=== PATIENT | female | born 1975 | race Caucasian/White ===

== ENCOUNTER → 2025-07-26 | Outpatient (CLI) | payer BC, SELFPAY ==
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
== END | disposition home or self-care (01) ==
LOC: CDIM 14:44
PROVIDERS: PCP Family Medicine; Referring Provider Family Medicine; Visit Provider Family Medicine
DX: S22.41XA Multiple fractures of ribs, right side, initial encounter for closed fracture (principal); V89.2XXA Person injured in unspecified motor-vehicle accident, traffic, initial encounter
CPT/HCPCS: 71046

== ENCOUNTER 2025-07-27 07:14 | Emergency (ER) | payer BC, SELFPAY ==
--- NOTE | 2025-07-27 07:21 | EKG_ITS ---
[facility] Test Date: 2025-07-27 Pat Name: PAWAN MACKEY Department: Room: - Gender: Female Rigger Up: : 1975 Requested By: Duc Fallon Order Number: [id number] Reading MD: Duc Fallon Measurements Intervals [place] Rate: 65 P: 50 OR: 192 QRS: 18 QRSD: 70 T: 29 QT: 351 QTc: 366 Interpretive Statements SINUS RHYTHM MINIMAL ST DEPRESSION [0.025+ mV ST DEPRESSION] No previous ECG available for comparison /store/S0/[id number].pdf
[2025-07-27 07:30] VITALS: BP 107/70; PULSE 61; RESP 16; TEMP 36.5; O2SAT 99; BMI 26.6
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
[2025-07-27 08:04] LABS: Collection Type, Urine Clean Catch; Squamous Epithelial Cell,Urine 0 /hpf (0-5)
[2025-07-27 08:07] LABS: Bilirubin,Urine Negative (Negative); Blood,Urine Negative (Negative); Clarity,Urine Clear (Clear/Hazy); Color,Urine Lt-Yellow (Lt Yel-Yel); Culture Indicated,Urine Not Indicated; Glucose, Urine Negative (Negative); Ketones,Urine Negative (Negative); Leukocyte Esterase,Urine Negative (Negative); Nitrite,Urine Negative (Negative); PH,Urine 6.5 (5.0-7.0); Protein,Urine Negative (Neg - Trace); RBC,Urine 1 /hpf (0-3); Specific Gravity,Urine 1.013 (1.001-1.035); Urobilinogen,Urine Negative mg/dL (0.0-1.0); WBC,Urine < 1 /hpf (0-5)
[2025-07-27 08:26] LABS: Basophils # (Auto) 0.1 Thou/mm3 (0.0-0.2); Basophils % (Auto) 1 % (0-2.5); Eosinophils # (Auto) 0.3 Thou/mm3 (0.0-0.5); Eosinophils % (Auto) 4 % (0-10); Hematocrit 37.9 % (36.0-46.0); Hemoglobin 12.6 g/dL (12.0-16.0); Immature Granulocytes Auto 0.02 Thou/mm3 (0.00-0.00); Lymphocytes # (Auto) 1.3 Thou/mm3 (1.0-4.8); Lymphocytes % (Auto) 20 % (10-50); Mean Corpuscular HGB Conc 33.2 g/dl (31.0-37.0); Mean Corpuscular Hemoglobin 30.1 pg (25.0-35.0); Mean Corpuscular Volume 91 fL (80-100); Monocytes # (Auto) 0.4 Thou/mm3 (0.0-0.8); Monocytes % (Auto) 7 % (0-12); Neutrophils # (Auto) 4.5 Thou/mm3 (1.8-7.7); Neutrophils % (Auto) 68 % (37-80); Nucleated Red Blood Cell # 0.00 Thou/mm3 (0.00-0.00); Nucleated Red Blood Cell % 0 /100 WBC (0); Platelet Count 239 Thou/mm3 (140-440); RDW Standard Deviation 42.9 fL (36.4-46.3); Red Blood Count 4.19 Miln/mm3 (4.00-5.20); White Blood Count 6.5 Thou/mm3 (3.6-11.0)
[2025-07-27 08:27] VITALS: BP 122/66; PULSE 68; RESP 17; O2SAT 98
[2025-07-27 08:40] LABS: B-Type Natriuretic Peptide 62 pg/mL (0-100)
[2025-07-27 08:42] LABS: Alanine Aminotransferase 31 U/L (10-49); Albumin, Serum 4.3 gm/dL (3.5-5.0); Albumin/Globulin Ratio 1.5 (1.2-2.2); Alkaline Phosphatase 50 U/L (46-116); Anion Gap 9 (7-16); Aspartate Amino Transferase 22 U/L (0-34); BUN/Creatinine Ratio 13 Ratio (12-20); Bilirubin,Total 0.4 mg/dL (0.3-1.2); Blood Urea Nitrogen 9 mg/dL (9-23); Calcium 9.4 mg/dL (8.3-10.6); Calcium (Corrected) 9.4 mg/dL (8.5-10.1); Carbon Dioxide 26.3 mMol/L (20.0-31.0); Chloride 106 mMol/L (98-107); Creatinine (Component) 0.7 mg/dL (0.6-1.3); Estimated Creatinine Clearance 92.5 mL/min (>60); Globulin 2.8 gm/dL (2.3-3.5); Glucose 86 mg/dL (74-106); Magnesium 2.0 mg/dL (1.6-2.6); Osmolality,Calculated 278 (275-295); Potassium 4.6 mMol/L (3.4-5.1); Sodium 141 mMol/L (136-145); Total Protein 7.1 gm/dL (5.7-8.2); Troponin I < 0.002 ng/mL (0.0-0.045); eGFR > 60 See Note
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
[2025-07-27 09:21] VITALS: BP 112/49; PULSE 56; RESP 20; TEMP 36.4; O2SAT 100
[2025-07-27] MEDS: SODIUM CHLORIDE 0.9% 1000 ML 1,000 ML 999 ML IV (09:28)
[2025-07-27] MEDS: ONDANSETRON INJ 2 MG/ML INJ 2 ML 4 MG IVP (09:29)
[2025-07-27] MEDS: MORPHINE SULF INJ 4 MG/ML VIAL IVP (09:29)
[2025-07-27 09:30] LABS: INR 1.0 (0.9-1.3); Partial Thromboplastin Time 25.5 Seconds (22.0-36.0); Prothrombin Time 10.3 Seconds (9.0-12.2)
[2025-07-27 09:33] VITALS: PULSE 64
[2025-07-27 11:02] VITALS: BP 121/64; PULSE 65; RESP 18; TEMP 36.4; O2SAT 100
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
[2025-07-27 12:48] VITALS: BP 107/83; PULSE 72; RESP 18; TEMP 36.7; O2SAT 98
== END 2025-07-27 12:52 | disposition home or self-care (01) ==
PROVIDERS: Nurse Practitioner Family; Emergency Provider Family Medicine; PCP Family Medicine
DX: S22.41XA Multiple fractures of ribs, right side, initial encounter for closed fracture (principal); V89.2XXA Person injured in unspecified motor-vehicle accident, traffic, initial encounter; Y92.410 Unspecified street and highway as the place of occurrence of the external cause; F32.A Depression, unspecified
CPT/HCPCS: 36415; 71046; 71275; 80053; 81001; 83735; 83880; 84484; 85025; 85610; 85730; 93005; 99284; A4649; J2270; J2405; J7030; Q9967